=== PATIENT | female | born 1950 | race Two or more races ===

== ENCOUNTER 2019-08-24 10:20 | Emergency (ER) | payer OTHER ==
[~2019-08-24] VITALS: Ht 157.5 cm; Wt 63.5 kg
[~2019-08-24 10:20] MED LIST: AVALIDE 150-12.1 TA1 PO; AVAPRO300 MG; HYDROCHLOROTHIA25 MG; TENORMIN25 MG PO
== END 2019-08-24 15:53 | disposition home or self-care (01) ==
LOC: ER 10:20
DX: I95.89 Other hypotension (principal); R42 Dizziness and giddiness